=== PATIENT | female | born 1985 | race Hispanic/Latino ===

== ENCOUNTER 2020-12-16 21:59 | Emergency (ER) | payer OTHER ==
[~2020-12-16] VITALS: Ht 167.6 cm; Wt 86.2 kg
[2020-12-16 23:59] LABS: BASOPHILS % (AUTO) 0.4 % (0.0-5.0); EOSINOPHILS % (AUTO) 1.8 % (0.0-8.0); HEMATOCRIT 45.9 % (36-48); LYMPHOCYTES % (AUTO) 37.7 % (21.0-51.0); MEAN CORPUSCULAR HEMOGLOBIN 29.4 pg (27.0-33.0); MEAN CORPUSCULAR HGB CONC 33.6 g/dL (32.0-36.0); MEAN CORPUSCULAR VOLUME 87.8 fL (79-99); MONOCYTES % (AUTO) 6.1 % (3.0-13.0); NEUTROPHILS % (AUTO) 53.7 % (40.0-77.0); PLATELET COUNT (AUTO) 368 K/uL (130-400); RED BLOOD CELL COUNT(AUTO) 5.23 MIL/uL (4.00-5.50); RED CELL DISTRIBUTION WIDTH 12.6 % (11.0-15.5); WHITE BLOOD COUNT (AUTO) 11.4 K/uL (4.8-10.8)
[2020-12-17] MEDS ORDERED: KETOROLAC 30MG VIAL (30MG/ML) IM ONE
[2020-12-17 00:01] LABS: CARBON DIOXIDE 26 mmol/L (21-32); CHLORIDE 101 mmol/L (101-111); CREATININE 0.8 mg/dL (0.5-1.5); GLOMERULAR FILTR. RATE CALC 87 mL/min (>60); GLUCOSE,RANDOM 96 mg/dL (70-105); SODIUM SERUM 138 mmol/L (136-145); UREA NITROGEN, BLOOD 15 mg/dL (7-18)
[2020-12-17 00:05] LABS: APPEARANCE,URINE Clear (CLEAR); BILIRUBIN,URINE Negative (NEGATIVE); COLOR,URINE Yellow (YELLOW); GLUCOSE, URINE (UA) Negative (NEGATIVE); KETONES,URINE Negative (NEGATIVE); LEUKOCYTE ESTERASE ,URINE Negative (NEGATIVE); NITRATE,URINE Negative (NEGATIVE); OCCULT BLOOD,URINE Negative (NEGATIVE); PH,URINE 6.5 (5.0-8.0); PROTEIN,URINE POS 1+ mg/dL (NEGATIVE)
[2020-12-17 00:21] LABS: ALANINE AMINOTRANSFERASE 88 U/L (12-78); ALBUMIN 3.9 g/dL (3.5-5.0); ASPARTATE AMINOTRANSFERASE 53 U/L (10-37); BILIRUBIN,TOTAL 0.5 mg/dL (0.2-1.0); CREATINE KINASE, TOTAL 117 U/L (21-232); MYOGLOBIN 25 ng/mL (10-92); TOTAL PROTEIN, SERUM 8.2 g/dL (6.0-8.3); TROPONIN I < 0.04 ng/mL (0.00-0.06)
[2020-12-17 00:23] LABS: BACTERIA,URINE Rare /HPF (None Seen); RBC,URINE 0-1 /HPF (0-1); SQUAMOUS EPITHELIAL CELL,UR Few /HPF (0-2); WBC,URINE 0-1 /HPF (0-1)
[2020-12-17] MEDS ORDERED: LIDOCAINE HCL 2% VISCOUS 15 ML UDCUP PO ONE (01:00)
[2020-12-17] MEDS ORDERED: MAG/ALUM/SIMETH 30 ML UDCUP PO ONE (01:00)
[2020-12-17] MEDS ORDERED: AZITHROMYCIN 250 MG TABLET PO ONE (01:00)
[2020-12-17] MEDS ORDERED: ALBU6.7H9 IH (01:01)
[2020-12-17] MEDS ORDERED: AZIT250T9 PO (01:01)
[2020-12-17 01:36] VITALS: BP 142/65
== END 2020-12-17 01:31 | disposition home or self-care (01) ==
LOC: EDH 21:59
DX: J40 Bronchitis, not specified as acute or chronic (principal); R11.2 Nausea with vomiting, unspecified; J02.9 Acute pharyngitis, unspecified; Z20.822 Contact with and (suspected) exposure to COVID-19; Z90.710 Acquired absence of both cervix and uterus; Z98.890 Other specified postprocedural states; Z79.899 Other long term (current) drug therapy
CPT/HCPCS: 36415; 71045; 80053; 81001; 82550; 83874; 84484; 85025; 85378; 87088; 87635; 87804 ×2; 87880; 93005; 96372; 99285; C9803; J1885